=== PATIENT | male | born 1955 | race Caucasian/White ===

== ENCOUNTER → 2017-02-07 | Outpatient (CLI) | payer OTHER ==
[~2017-02-07] MED LIST: NS 100 ML IV 100 ML IV ONE
[2017-02-07 10:30] LABS: CREATININE 1.29 mg/dL (0.70-1.30)
--- NOTE | 2017-02-07 14:14 | CT ---
CTA chest Indication: Subclavian steal syndrome, right subclavian bruit Technique: Helical CT images of the chest were obtained with IV contrast. Reformatted images in the c oronal and sagittal planes were also generated for review. Comparison: None Findings: Contrast bolus timing is adequate for detection of PTE. No pulmonary thromboembolus is iden tified. There is no pulmonary arterial dilatation or evidence of right heart strain. Opacification of the thoracic aorta and great vessels is slightly limited for evaluation of the great vessels. Given these limitations, there is conventional branching anatomy of the great vessels, which are moderately calcified proximally. There is moderate focal calcification of the innominate artery at its bifurcat ion with moderate, at least 50% luminal stenosis. The right common carotid, subclavian and vertebral artery otherwise appear grossly patent without flow-limiting stenosis. The left common carotid and lemus bclavian arteries are also grossly patent. The thoracic aorta is normal in contour and caliber. The heart is normal in size with moderate three-vessel coronary atherosclerotic disease. No significa nt pericardial effusion is seen. The central airways are patent. There is no incidental adenopathy. Mild emphysematous changes are present with associated bronchiectasis. There is mild, slightly nodula r biapical pleural-parenchymal scarring as well as mucus plugging within the right middle lobe and li ngula. A small intraluminal mucosal nodule is also present within the right lower lobe bronchus (imag e 74, series 5). The lungs are otherwise clear without focal consolidation or suspicious nodule/mass. No pleural effusion or pneumothorax is identified. Limited arterial phase images of the upper abdomen demonstrate punctate nonobstructing left renal sto jaida. No aggressive osseous lesions are identified. Impression: 1. 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 Otherwise, no focal stenosis of the right subclavian artery proximal to the vertebral artery o rigin is identified. 2. Emphysema with associated bronchiectasis and mucous plugging. Small intraluminal mucosal nodule wi thin the right lower lobe bronchus also likely reflects inspissated secretions, although a small endo bronchial lesion cannot be excluded. Direct visualization with bronchoscopy can be performed if clini leatha indicated. 3. Nonobstructing left nephrolithiasis and additional incidental findings as above. Reported By:
== END | disposition home or self-care (01) | DRG 69 ==
LOC: RAD 10:00
PROVIDERS: ATTEND Psychiatry & Neurology Neurology
DX: G45.8 Other transient cerebral ischemic attacks and related syndromes (principal); J43.8 Other emphysema; N20.0 Calculus of kidney
CPT/HCPCS: 36415; 71275; 82565; 84520; A4222

== ENCOUNTER → 2017-02-10 | Outpatient (CLI) | payer OTHER ==
--- NOTE | 2017-02-10 14:00 | CT ---
STUDY: CTA HEAD HISTORY: Syncope. Subclavian steal syndrome. TECHNIQUE: Multiple axial images of the head were obtained from the skullbase to the vertex after adm inistration of IV contrast. Image acquisition was optimized for evaluation of the intracranial arteri al circulation. 3D, coronal and sagittal reformatted images were performed and reviewed. Automated ex posure control (AEC) was utilized to adjust the MA and/or kV. COMPARISON: None. FINDINGS: Pre contrast head: The sulci cisterns and ventricles are age appropriate. There is no evidence of acu te territorial infarction, hemorrhage, mass, mass effect, or midline shift. There are no abnormal int ra-axial or extra-axial fluid collections. CTA head: Right ICA: The right ICA is normal in appearance from the carotid canal to the right ICA terminus. Th ere is no evidence of hemodynamically significant stenosis or aneurysm. Right MCA: There is normal endoluminal enhancement right middle cerebral arteries in the M1, M2 and t ertiary branches. Right HUMBERTO: The right A1 segment is absent. The right A2 HUMBERTO segment is normal and is supplied from th e left via anterior communicating artery. Left ICA: There is normal endoluminal enhancement of the left ICA from the carotid canal to the ICA t erminus. Left MCA: There is normal endoluminal enhancement in the M1, M2, and tertiary segments. Left HUMBERTO: The left A1 and A2 HUMBERTO segments are normal and appearance. Right VA: The right vertebral artery is normal in appearance from its dural insertion to the basilar artery. The right vertebral artery is dominant. Left VA: The left vertebral artery is normal in appearance. Basilar artery: There is no evidence of hemodynamically significant stenosis. There are bilateral sup erior cerebellar arteries. Posterior communicating arteries are not identified. Right FISH PACKER: There is a normal right FISH PACKER. Left FISH PACKER: There is a normal left FISH PACKER. IMPRESSION: 1. No evidence of acute intracranial abnormality. 2. Normal CTA examination of the intracranial circulation, with anatomic variation as described. Reported By:
== END ==
LOC: RAD 08:22
PROVIDERS: ATTEND Psychiatry & Neurology Neurology
DX: G45.8 Other transient cerebral ischemic attacks and related syndromes (principal); R55 Syncope and collapse
CPT/HCPCS: 70496; A4222

== ENCOUNTER → 2017-02-15 | Outpatient (CLI) | payer OTHER ==
[~2017-02-15] MED LIST changes: -NS 100 ML IV 100 ML IV ONE; +NS 250 ML IV 250 ML IV ONE
[2017-02-15 09:22] LABS: CREATININE 1.26 mg/dL (0.70-1.30)
--- NOTE | 2017-02-15 12:06 | CT ---
Indication: Subclavian steal syndrome. Exam: CTA of the neck vasculature. Technique: Axial spiral images were obtained from the aortic arch through the base of the skull after bolus administration of 100 cc Omnipaque 350. Coronal and sagittal MPGR and 3D MIP reconstructions w ere performed of the neck vessels. Findings: There is mild plaque throughout the aortic arch which is mildly dilated throughout with no dissection or obvious aneurysm seen. There is moderate plaque along the origin of the great vessels c ausing proximally 30-40% narrowing along the origin of left common carotid artery with good flow dist ally. No mediastinal mass or adenopathy is seen . There is mild biapical pleural thickening and paren chymal scarring extending into the upper lobes posteriorly. There is mild soft plaque along the origi n of the right internal carotid artery causing minimal narrowing in the range of 15-20% with good florencio w distally. There is mild calcified plaque along the origin of left internal carotid artery causing n arrowing in the range of 15-30%. There is good flow distally. No dissection is seen. Both vertebral a rteries are patent and normal caliber throughout with no vessel cut off or dissection seen . The basi lar artery is unremarkable. The carotid siphons are patent and normal caliber throughout with a neftali l bifurcation intracranially. The thyroid gland is unremarkable. There is no neck mass or adenopathy. Moderate degenerative changes are seen throughout the spine with no aggressive osseous lesion. Impression: Mild calcified and soft plaque along both bifurcations causing approximately 15-30% narrowing along b oth proximal internal carotid arteries which is more prominent on the left. Unremarkable vertebral arteries with no dissection or narrowing. Mildly calcified and mildly dilated aortic arch with focal plaque along the origin of the great vesse ls which is causing narrowing along the origin of left common carotid artery in the range of 30 to 40 % . Moderate biapical pleural thickening and parenchymal scarring extending into the upper lobes posterio rly , suggest followup to assure long-term stability. Reported By:
== END ==
LOC: RAD 08:22
PROVIDERS: ATTEND Psychiatry & Neurology Neurology
DX: G45.8 Other transient cerebral ischemic attacks and related syndromes (principal); R55 Syncope and collapse
CPT/HCPCS: 36415; 70498; 82565; 84520; 95819; A4222